=== PATIENT | female | born 2000 | race Caucasian/White ===

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

== ENCOUNTER → 2022-03-14 | Outpatient (CLI) | payer BC ==
--- NOTE | 2022-03-14 11:16 | Diagnostic Imaging Report ---
HISTORY: Thoracic spine pain. TECHNIQUE: Two views of the thoracic spine. COMPARISON: None. FINDINGS: Alignment of the thoracic spine appears normal. There is no spondylolisthesis. Vertebral body heights and disc heights are preserved. No acute fracture is seen. IMPRESSION: 1. No acute osseous abnormality is seen in the thoracic spine. Dictated by: Dictated on workstation # [id number]
== END ==
LOC: RAD FS 08:58
PROVIDERS: ATTEND Family Medicine
DX: M54.6 Pain in thoracic spine (principal)
CPT/HCPCS: 72070

== ENCOUNTER 2022-04-02 11:13 | Outpatient (RCR) | payer BC | END 2022-04-22 14:40 | disposition home or self-care (01) | PROVIDERS: ATTEND Family Medicine | DX: M54.16 Radiculopathy, lumbar region (principal) ==

== ENCOUNTER → 2022-05-09 | Outpatient (CLI) | payer BC ==
--- NOTE | 2022-05-09 12:59 | Diagnostic Imaging Report ---
Indication: Sinusitis TECHNIQUE: Multiple contiguous axial images were obtained through the sinuses without the use of intravenous contrast. Coronal and sagittal reformations were then performed. Auto Exposure Controls were utilized during the CT exam to meet ALARA standards for radiation dose reduction. There is no prior sinus CT for comparison Orbital contents appear unremarkable. The maxillary sinuses appear clear. Ethmoid air cells appear clear. The sphenoid sinuses are clear. The frontal sinuses are somewhat hypoplastic but appear clear. The nasal septum shows slight leftward deviation. A septal bone spur on the left side is noted. There is a small hoarcio bullosa in the left middle turbinate. IMPRESSION: No evidence of acute sinusitis. Dictated by: Dictated on workstation # [id number]
== END ==
LOC: RAD 12:20
PROVIDERS: ATTEND Registered Nurse Emergency
DX: J01.90 Acute sinusitis, unspecified (principal)
CPT/HCPCS: 70486

== ENCOUNTER 2022-12-23 12:45 | Emergency (ER) | payer BC ==
[~2022-12-23] VITALS: Ht 157.4 cm; Wt 50.8 kg
[2022-12-23] MEDS ORDERED: LACTATED RINGERS 1,000 ML IV STA (12:56)
[2022-12-23] MEDS ORDERED: ONDANSETRON 4 MG/2 ML (SDV) Z0FRAN IVP ONE (13:00)
[2022-12-23] MEDS ORDERED: PROM25SU44 RC (13:36)
[2022-12-23] MEDS ORDERED: ONDA4TAB11 SL (13:36)
--- NOTE | 2022-12-23 13:37 | ED GI ---
General Chief Complaint: Abdominal/GI Problems Stated Complaint: VOMITING Nursing Triage Note: ARRIVES AMB TO ROOM 02 WITH A C/O VOMITING AND DIARRHEA WITH ABDOMINAL CRAMPING THAT STARTED THIS AM. Source of Information: Patient Exam Limitations: No Limitations History of Present Illness Date Seen by Provider: Dec 23, 2022 Time Seen by Provider: 12:48 Initial Comments 22-year-old female with no pertinent past medical history coming in due to nonbloody nonbilious nausea and vomiting as well as nonbloody diarrhea. Started this morning, numerous episodes. Has abdominal cramping but no severe pain. She does work at a daycare. She is unsure if anyone around her has been sick. She does not believe she has eaten anything that could have made her sick. Denies any fever chest pain, shortness of breath, rash, vaginal bleeding, dysuria, or any other concerns. She is on control with her LMP 20 days ago. Allergies and Home Medications Allergies Coded Allergies: No Known Drug Allergies (Unverified , 04/21/20) Patient Home Medication List Home Medication List Reviewed: Yes Cyclobenzaprine HCl (Cyclobenzaprine HCl) 5 Mg Tablet, 5 MG PO TID Prescribed by: MILAN SHAW on 04/21/201836 Hydrocodone/Acetaminophen (Hydrocodone-Acetamin 5-325 mg) 1 Each Tablet, 1 EACH PO Q6H Prescribed by: MILAN SHAW on 04/21/201836 Ibuprofen (Ibuprofen) 800 Mg Tablet, 800 MG PO Q8H PRN for PAIN Prescribed by: MILAN SHAW on 04/21/201836 Review of Systems Review of Systems Constitutional: No fever EENTM: No Symptoms Reported Respiratory: No Symptoms Reported Cardiovascular: No Symptoms Reported Gastrointestinal: See HPI Genitourinary: No Symptoms Reported Musculoskeletal: no symptoms reported Skin: no symptoms reported Past [id number]-Dzlsgg-Qbloqi Hx Patient Social History Tobacco Use?: No Use of E-Cig and/or Vaping dev: No Substance use?: No Alcohol Use?: Yes Alcohol type: Other Alcohol Frequency: Daily Pt feels they are or have been: No Immunizations Up To Date Influenza Vaccine Up-to-Date: Yes; Up-to-Date First/Initial COVID19 Vaccinat: NO Seasonal Allergies Seasonal Allergies: No Past Medical History Surgery/Hospitalization HX: SEASONAL ALLERGIES, DEPRESSION DENIES SURGERIES Surgeries: No Respiratory: No Cardiac: No Neurological: No Last Menstrual Period: Dec 03, 2022 Genitourinary: No Gastrointestinal: No Musculoskeletal: No Endocrine: No HEENT: No Cancer: No Psychosocial: No Integumentary: No Blood Disorders: No Physical Exam Vital Signs Vital Signs - First Documented 12/23/22 12:48 Temp 37.3 Pulse 113 Resp 16 B/P (MAP) 132/88 (103) Pulse Ox 100 O2 Delivery Room Air Capillary Refill : Less Than 3 Seconds Height/Weight/BMI Height: '" Weight: lbs. oz. kg; 20.00 BMI Method: General Appearance: WD/WN, no apparent distress HEENT: PERRL/EOMI, normal ENT inspection, pharynx normal Neck: non-tender, full range of motion, supple, normal inspection Respiratory: chest non-tender, lungs clear, normal breath sounds, no respiratory distress, no accessory muscle use Cardiovascular: regular rate, rhythm, no edema, no murmur Gastrointestinal: normal bowel sounds, non tender, soft; No distended, No guarding, No rebound Extremities: normal range of motion, non-tender, normal inspection, no pedal edema, no calf tenderness, normal capillary refill Back: normal inspection, no CVA tenderness Neurologic/Psychiatric: no motor/sensory deficits, alert, normal mood/affect Skin: normal color, warm/dry Progress/Results/Core Measures Results/Orders My Orders Orders - ELIESER DOWD MD Urine Bedside (12/23/22 12:50) Ed Iv/Invasive Line Start (12/23/22 12:56) Urine Bedside (12/23/22 12:56) Lactated Ringers (Lr 1000 Ml Iv Solution (12/23/22 12:56) Ondansetron Injection (Zofran Injectio (12/23/22 13:00) Medications Given in ED Current Medications Medications Dose Ordered Sig/Valentin Route Start Time Stop Time Status Last Admin Dose Admin Ondansetron HCl 4 mg ONCE ONCE IVP 12/23/22 13:00 12/23/22 13:01 DC 12/23/22 13:03 4 MG Vital Signs/I&O 12/23/22 12:48 Temp 37.3 Pulse 113 Resp 16 B/P (MAP) 132/88 (103) Pulse Ox 100 O2 Delivery Room Air Blood Pressure Mean: 103 Progress Progress Note : Progress Note 22-year-old female with above history coming in due to vomiting and diarrhea. ABCs were intact and vitals were stable on presentation although she is mildly tachycardic. Abdomen is soft and nontender. An IV was placed and she was given a bolus of IV fluids as well as Zofran. Clinically seems like gastroenteritis, especially given the no tenderness on exam. [id number]-le-[id number] test negative. Looks and feels much better on reassessment. I believe she stable for discharge with outpatient follow-up. She was sent home with strict return precautions. Departure Impression Primary Impression: Vomiting and diarrhea Disposition: HOME, SELF-CARE Condition: Stable Departure-Patient Inst. Decision time for Depature: 13:35 Referrals: MARTY WEST MD (PCP) Primary Care Physician Patient Instructions: Viral Gastroenteritis, Adult (DC) Add. Discharge Instructions: This is most often caused by a "stomach bug". Typical symptoms for people last 1 to 3 days, can last longer, but less likely. Nausea medicines were sent to your pharmacy. Take frequent but small sips of fluids, you might not want to eat as much for the next couple of days and that is okay as long as you are drinking some fluids. Follow-up with your regular doctor if you are not seeing improvement. Scripts Promethazine HCl (Promethazine Suppository) 25 Mg Supp.rect 25 MG RC Q6H PRN for NAUSEA/VOMITING-2ND LINE for 3 Days, #12 SUPP.RECT Prov: ELIESER DOWD MD 12/23/22 Ondansetron (Ondansetron Odt) 4 Mg Tab.rapdis 4 MG SL Q6H PRN for NAUSEA/VOMITING-1ST LINE for 5 Days, #20 TAB Prov: ELIESER DOWD MD 12/23/22 Work/School Note: Work Release Form Date Seen in the Emergency Department: Dec 23, 2022 Return to Work: Dec 25, 2022 Restrictions: Return-No Vomiting(24hrs) ELIESER DOWD MD Dec 23, 2022 13:37
[2022-12-23 13:48] VITALS: BP 132/88
== END 2022-12-23 13:48 | disposition home or self-care (01) ==
LOC: EDUNIT# 12:45 → ER FS 12:46
DX: R11.2 Nausea with vomiting, unspecified (principal); R19.7 Diarrhea, unspecified; R00.0 Tachycardia, unspecified
CPT/HCPCS: 84703